=== PATIENT | male | born 1960 | race Caucasian/White ===

== ENCOUNTER 2020-04-24 15:22 | Emergency (ER) | payer OTHER ==
[2020-04-24] MEDS ORDERED: Pepcid 20 MG VIAL IV ONE ×2 (15:56→16:06)
[2020-04-24] MEDS ORDERED: GI COCKTAIL 45 ML (Maalox/Lidocaine) PO ONE (15:57)
[2020-04-24] MEDS ORDERED: XYLOCAINE HCl Viscous ONE (16:07)
[2020-04-24] MEDS ORDERED: MAALOX ES 30 ML UNIT DOSE ONE (16:08)
[2020-04-24 16:11] LABS: Absolute Neutrophil Ct (ANC) 4.86 (1.4-6.9); BASOPHIL % 0.1 % (0.0-0.4); Basophil (Absolute #) 0.01 (0-0.4); Eosinophil % 1.1 % (0.00-5.0); Eosinophil (Absolute #) 0.09 (0-0.5); Hematocrit 44.5 % (42-50); Hemoglobin 15.3 gm/dl (12.5-18.0); Lymphocyte (Absolute #) 1.99 (1.0-4.6); Lymphocytes % 25.3 % (24.0-44.0); Mean Cell Volume 87.8 fl (78-100); Mean Corpuscular Hemoglobin 30.2 pg (26-32); Mean Corpuscular Hgb Concent. 34.4 g/dl (32-36); Mean Platelet Volume 9.7 fl (7.5-11.0); Monocyte (Absolute #) 0.93 (0.0-1.3); Monocytes % 11.8 % (0.0-12.0); Neutrophil % 61.7 % (36.0-66.0); Platelet Count 218 K/mm3 (150-450); Red Blood Count 5.07 M/mm3 (4.1-5.6); Red Cell Distribution Width 13.2 % (11.5-14.0); White Blood Count 7.9 K/mm3 (4.0-10.5)
[2020-04-24 16:30] LABS: ALBUMIN 4.2 g/dL (3.5-5.0); ALKALINE PHOSPHATASE 87 U/L (38-126); ANION GAP 10.2 MEQ/L (5-15); BLOOD UREA NITROGEN 15 mg/dL (9-20); CHLORIDE 103 mmol/L (98-107); Calcium 9.4 mg/dL (8.4-10.2); Carbon Dioxide 30 mmol/L (22-30); Creatinine 1 1.15 mg/dL (0.66-1.25); EST GLOMERULAR FILTRATION RATE > 60.0 ML/MIN; Glucose 145 mg/dL (74-106); NT PRO BNP 840 pg/mL (0-900); Potassium 3.1 mmol/L (3.5-5.1); SGOT/AST 33 U/L (17-59); SGPT/ALT 18 U/L (0-50); SODIUM 139 mmol/L (137-145); Total Protein 7.4 g/dL (6.3-8.2)
[2020-04-24] MEDS ORDERED: Klor Con 10 MEQ PO ONE ×2 (16:43→16:46)
--- NOTE | 2020-04-24 16:44 | ERPHSYRPT ---
- History of Present Illness Time Seen by Provider: 04/24/20 15:40 Historian: patient Exam Limitations: no limitations Patient Subjective Stated Complaint: Chest pain Triage Nursing Assessment: Patient ambulated back to ED and transferred self to bed. Patient A+O X 3. Patient's skin pink, warm and dry.Patient complains of intermittent chest pain that started on Saturday. Patient states he is having intermittent chest heaviness and burning 7/10 pain. Patient lungs clear a/p deangelo. No edema noted. Heart tones audible. Patient states the pain has been relieved by antacids, but not today. Physician History: 60 years old male with a history of hypertension, diabetes mellitus presented in the ER with chief complaint of intermittent substernal chest discomfort with burning sensation since yesterday. Pain comes on every time after eating and gets better with [id number] antacids. He has taken multiple doses of antacids last 1 around noontime and at 3 pain return. No difficulty breathing or palpitations. Denies any history of CAD or any work-up in the past. Pain is moderate at max but currently rates 1/10 intensity. He has taken full dose aspirin prior to arrival. Does have history of gastric ulcer few years ago which improved after taking medication and does not take any PPI/H2 liliam on a regular basis. Timing/Duration: yesterday, intermittent, sudden, worse Activities at Onset: rest Quality: burning Location: central Chest Pain Radiation: no radiation Severity of Pain-Max: moderate Severity of Pain-Current: mild Modifying Factors: Improves With: antacids. Worsens With: eating Associated Symptoms: heartburn Prior Chest Pain/Cardiac Workup: no prior chest pain, no prior cardiac workup Nitro Today/Relief: no nitro taken today Aspirin Treatment Today: 81 mg x 4 Allergies/Adverse Reactions: Penicillins Allergy (Verified 04/24/20 15:29) Home Medications: Amlodipine Besylate 5 mg [Norvasc 5 mg] 1 tab PO HS 04/24/20 [History] Aspirin 81 gm Chew [Baby Aspirin 81 mg Chew] 1 tab PO HS 04/24/20 [History] Cetirizine HCl [Zyrtec] 1 tab PO HS 04/24/20 [History] Hydrochlorothiazide 25 mg [hydroDIURIL 25 MG] 0.5 tab PO BID 04/24/20 [History] Losartan Potassium [Cozaar] 1 tab PO DAILY 04/24/20 [History] Metformin HCl 500 mg [Glucophage 500 MG] 1 tab PO BID 04/24/20 [History] Multivitamin [Multivitamins] 1 tab PO DAILY 04/24/20 [History] Pioglitazone 30 mg [Actos 30 MG] 1 tab PO DAILY 04/24/20 [History] Hx Influenza Vaccination/Date Given: No Hx Pneumococcal Vaccination/Date Given: No Immunizations Up to Date: Yes Travel Risk - International Travel Have you traveled outside of the country in past 3 weeks: No - Coronavirus Screening Are you exhibiting any of the following symptoms?: No Close contact with a COVID-19 positive Pt in past 14-21 Days: No - Review of Systems Constitutional: No Symptoms Eyes: No Symptoms Ears, Nose, & Throat: No Symptoms Respiratory: No Symptoms Cardiac: Chest Pain Abdominal/Gastrointestinal: No Symptoms Genitourinary Symptoms: No Symptoms Musculoskeletal: No Symptoms Skin: No Symptoms Neurological: No Symptoms Psychological: No Symptoms Endocrine: No Symptoms Hematologic/Lymphatic: No Symptoms Immunological/Allergic: No Symptoms - Past Medical History Pertinent Past Medical History: Yes Neurological History: No Pertinent History ENT History: No Pertinent History Cardiac History: High Cholesterol, Hypertension Respiratory History: No Pertinent History Endocrine Medical History: Diabetes Type II Musculoskeletal History: No Pertinent History GI Medical History: No Pertinent History History: No Pertinent History Psycho-Social History: No Pertinent History Male Reproductive Disorders: No Pertinent History Other Medical History: Seasonal allergies - Past Surgical History Past Surgical History: No Neuro Surgical History: No Pertinent History Cardiac: No Pertinent History Respiratory: No Pertinent History Gastrointestinal: No Pertinent History Genitourinary: No Pertinent History Musculoskeletal: No Pertinent History Male Surgical History: No Pertinent History - Social History Smoking Status: Never smoker Exposure to second hand smoke: No Drug Use: none Patient Lives Alone: No - Nursing Vital Signs Nursing Vital Signs: Initial Vital Signs Temperature 98.5 F 04/24/20 15:29 Pulse Rate 108 H 04/24/20 15:29 Respiratory Rate 20 04/24/20 15:29 Blood Pressure 191/108 04/24/20 15:29 O2 Sat by Pulse Oximetry 98 04/24/20 15:29 Pain Scale Pain Intensity 0 - Physical Exam General Appearance: no apparent distress, alert Eye Exam: PERRL/EOMI, eyes nml inspection Ears, Nose, Throat Exam: normal ENT inspection, pharynx normal Neck Exam: normal inspection, supple, full range of motion Respiratory Exam: normal breath sounds, lungs clear Cardiovascular Exam: normal heart sounds, tachycardia Gastrointestinal/Abdomen Exam: soft, normal bowel sounds, No tenderness Back Exam: normal inspection, normal range of motion Neurologic Exam: alert, oriented x 3, cooperative, stock replenisher II-XII nml as tested Skin Exam: normal color SpO2 Interpretation: normal SpO2: 98 O2 Delivery: Room Air - Course EKG Interpreted by Me: RATE, Sinus Tach, NORMAL AXIS, NORMAL INTERVALS, Ischemic ST-T changes (ST depression in anterolateral leads) Ordered Tests: Active Orders 24 hr Category Date Time Status Supervisor Seaming STAT Care 04/24/20 15:57 Completed EKG-ER Only STAT Care 04/24/20 15:56 Completed IV Insertion STAT Care 04/24/20 15:56 Completed CHEST 1 VIEW (PORTABLE) Stat Exams 04/24/20 16:19 Completed CBC W DIFF Stat Lab 04/24/20 15:50 Completed CMP Stat Lab 04/24/20 15:50 Completed D-DIMER QUANTITATIVE Stat Lab 04/24/20 15:50 Completed MAGNESIUM Stat Lab 04/24/20 15:50 Completed NT PRO BNP Stat Lab 04/24/20 15:50 Completed TROPONIN Q3H Lab 04/24/20 15:50 Completed TROPONIN Q3H Lab 04/24/20 18:50 Completed Medication Summary Discontinued Medications Generic Name Dose Route Start Last Admin Trade Name Freq PRN Reason Stop Dose Admin Al Hydrox/Mg Hydrox/Simethicone Confirm 04/24/20 16:08 Maalox Es 30 Ml Unit Dose Administered 04/24/20 16:09 Dose 30 ml .ROUTE .STK-MED ONE Enoxaparin Sodium 90 mg 04/24/20 17:08 04/24/20 17:13 Enoxaparin Sodium 1 mg/kg (90 mg) 04/24/20 17:09 90 mg SQ Administration ONCE STA Enoxaparin Sodium Confirm 04/24/20 17:11 Enoxaparin Sodium Administered 04/24/20 17:12 Dose 120 mg SQ .STK-MED ONE Famotidine 20 mg 04/24/20 15:56 04/24/20 16:09 Pepcid 20 Mg Vial IV 04/24/20 15:57 20 mg STAT ONE Administration Famotidine Confirm 04/24/20 16:06 Pepcid 20 Mg Vial Administered 04/24/20 16:07 Dose 20 mg IV .STK-MED ONE Lidocaine HCl Confirm 04/24/20 16:07 Xylocaine Hcl Viscous * Administered 04/24/20 16:08 Dose 15 ml .ROUTE .STK-MED ONE Magnesium Hydroxide 45 ml 04/24/20 15:57 04/24/20 16:09 Gi Cocktail 45 Ml (Maalox/Lidocaine) PO 04/24/20 15:58 45 ml STAT ONE Administration Nitroglycerin 1 gm 04/24/20 17:09 04/24/20 17:13 Nitro-Bid 2% Ud Packets TOP 04/24/20 17:10 1 gm STAT ONE Administration Nitroglycerin Confirm 04/24/20 17:11 Nitro-Bid 2% Ud Packets Administered 04/24/20 17:12 Dose 1 gm .ROUTE .STK-MED ONE Potassium Chloride 40 meq 04/24/20 16:43 04/24/20 16:47 Klor Con 10 Meq PO 04/24/20 16:44 40 meq STAT ONE Administration Potassium Chloride Confirm 04/24/20 16:46 Klor Con 10 Meq Administered 04/24/20 16:47 Dose 40 meq PO .STK-MED ONE Lab/Rad Data: Laboratory Result Diagrams 04/24/20 15:50 04/24/20 15:50 Laboratory Results 04/24/20 04/24/20 04/24/20 Range/Units 18:50 15:50 15:50 WBC (4.0-10.5) K/mm3 RBC (4.1-5.6) M/mm3 Hgb (12.5-18.0) gm/dl Hct (42-50) % MCV (78-100) fl MCH (26-32) pg MCHC (32-36) g/dl RDW (11.5-14.0) % Plt Count (150-450) K/mm3 MPV (7.5-11.0) fl Gran % (36.0-66.0) % Eos # (Auto) (0-0.5) Absolute Lymphs (auto) (1.0-4.6) Absolute Monos (auto) (0.0-1.3) Lymphocytes % (24.0-44.0) % Monocytes % (0.0-12.0) % Eosinophils % (0.00-5.0) % Basophils % (0.0-0.4) % Absolute Granulocytes (1.4-6.9) Basophils # (0-0.4) D-Dimer 244 (215-500) ng/mL Sodium (137-145) mmol/L Potassium (3.5-5.1) mmol/L Chloride (98-107) mmol/L Carbon Dioxide (22-30) mmol/L Anion Gap (5-15) MEQ/L BUN (9-20) mg/dL Creatinine (0.66-1.25) mg/dL Estimated GFR ML/MIN Glucose (74-106) mg/dL Calcium (8.4-10.2) mg/dL Magnesium (1.6-2.3) mg/dL Total Bilirubin (0.2-1.3) mg/dL AST (17-59) U/L ALT (0-50) U/L Alkaline Phosphatase (38-126) U/L Troponin I 2.140 H* 1.740 H* (0.000-0.034) ng/mL NT-Pro-B Natriuret Pep (0-900) pg/mL Serum Total Protein (6.3-8.2) g/dL Albumin (3.5-5.0) g/dL 04/24/20 04/24/20 Range/Units 15:50 15:50 WBC 7.9 (4.0-10.5) K/mm3 RBC 5.07 (4.1-5.6) M/mm3 Hgb 15.3 (12.5-18.0) gm/dl Hct 44.5 (42-50) % MCV 87.8 (78-100) fl MCH 30.2 (26-32) pg MCHC 34.4 (32-36) g/dl RDW 13.2 (11.5-14.0) % Plt Count 218 (150-450) K/mm3 MPV 9.7 (7.5-11.0) fl Gran % 61.7 (36.0-66.0) % Eos # (Auto) 0.09 (0-0.5) Absolute Lymphs (auto) 1.99 (1.0-4.6) Absolute Monos (auto) 0.93 (0.0-1.3) Lymphocytes % 25.3 (24.0-44.0) % Monocytes % 11.8 (0.0-12.0) % Eosinophils % 1.1 (0.00-5.0) % Basophils % 0.1 (0.0-0.4) % Absolute Granulocytes 4.86 (1.4-6.9) Basophils # 0.01 (0-0.4) D-Dimer (215-500) ng/mL Sodium 139 (137-145) mmol/L Potassium 3.1 L (3.5-5.1) mmol/L Chloride 103 (98-107) mmol/L Carbon Dioxide 30 (22-30) mmol/L Anion Gap 10.2 (5-15) MEQ/L BUN 15 (9-20) mg/dL Creatinine 1.15 (0.66-1.25) mg/dL Estimated GFR > 60.0 ML/MIN Glucose 145 H (74-106) mg/dL Calcium 9.4 (8.4-10.2) mg/dL Magnesium 2.0 (1.6-2.3) mg/dL Total Bilirubin 0.50 (0.2-1.3) mg/dL AST 33 (17-59) U/L ALT 18 (0-50) U/L Alkaline Phosphatase 87 (38-126) U/L Troponin I (0.000-0.034) ng/mL NT-Pro-B Natriuret Pep 840 (0-900) pg/mL Serum Total Protein 7.4 (6.3-8.2) g/dL Albumin 4.2 (3.5-5.0) g/dL - Progress Progress: improved Air Movement: good Progress Note: 04/24/20 17:16 60 years old is evaluated for intermittent chest pain since yesterday. He has a full dose aspirin prior to arrival. EKG showed ST depression in anterolateral leads with no elevation. Patient pain currently is 1/10. X-rays chest negative for any acute findings reviewed by me, official report is pending. Normal white count and D-dimers. Mildly low potassium for which he is given replacement. He has a troponin of 1.7. He is given Nitropaste which will help with the chest tightness/pain and also help with the blood pressure. I believe patient is having an STEMI, do not have cardiology services here. I have discussed with Dr. Garcia at [facility], agreed with giving Lovenox and patient is accepted for transfer. Plan discussed with patient and family who understand and agree with it. Blood Culture(s) Obtained: No Antibiotics given: No Discussed with DrNicholas: Other (Anahy) Counseled pt/family regarding: lab results, diagnosis, rad results - Departure Departure Disposition: Transfer Clinical Impression: NSTEMI (non-ST elevated myocardial infarction) Condition: Stable Critical Care Time: Yes Critical Care Time(excluding separately billable procedures): Critical 30-74 mins Referrals: LAN PRICE MD [Primary Care Provider] -
[2020-04-24] MEDS ORDERED: ENOXAPARIN SODIUM SQ STA (17:08)
[2020-04-24] MEDS ORDERED: NITRO-BID 2% UD PACKETS TOP ONE (17:09)
[2020-04-24] MEDS ORDERED: NITRO-BID 2% UD PACKETS ONE (17:11)
[2020-04-24] MEDS ORDERED: ENOXAPARIN SODIUM SQ ONE (17:11)
[2020-04-24 18:18] VITALS: PULSE 88
--- NOTE | 2020-04-24 19:04 | XRAY ---
Indication: Chest pain. Comparison: None Portable apical lordotic chest demonstrates normal heart and lungs. Bony thorax intact.
[2020-04-24 19:07] VITALS: BP 149/64
[2020-04-24 19:40] VITALS: O2SAT 98
== END 2020-04-24 19:09 | disposition short-term general hospital (02) ==
LOC: ED 15:22
DX: I21.4 Non-ST elevation (NSTEMI) myocardial infarction (principal)
CPT/HCPCS: 36000; 36415; 71045; 80053; 83735; 83880; 84484; 85025; 85379; 93005; 93041; 96372; 96374; 99285; 99291; J1650; A9270-GY